=== PATIENT | male | born 1995 | race Caucasian/White ===

== ENCOUNTER 2017-08-27 18:29 | Emergency (ER) | payer SELFPAY ==
[~2017-08-27] VITALS: Ht 175.3 cm; Wt 80.0 kg
[~2017-08-27 18:29] MED LIST: AZIT500T2 PO; IBUP-232 PO
[2017-08-27 18:34] VITALS: BP 122/58; PULSE 66; RESP 16; TEMP 98.8; O2SAT 98
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
== END 2017-08-27 20:22 | disposition home or self-care (01) ==
LOC: PHEFT 18:29
DX: S93.401A Sprain of unspecified ligament of right ankle, initial encounter (principal); X50.1XXA Overexertion from prolonged static or awkward postures, initial encounter; Y93.18 Activity, surfing, windsurfing and boogie boarding
CPT/HCPCS: 73610; 99283; E0113; L1906